=== PATIENT | female | born 1950 | race Caucasian/White ===

== ENCOUNTER 2019-07-06 08:56 | Emergency (ER) | payer MEDICARE ==
[2019-07-06] MEDS ORDERED: METOPROL TAR25 MG PO (09:21)
[2019-07-06] MEDS ORDERED: ASPIRIN81 MG PO (09:21)
[2019-07-06] MEDS ORDERED: SERTRALINE25 MG PO (09:22)
[2019-07-06] MEDS ORDERED: LIDODERM5 % EX (09:34)
[2019-07-06] MEDS ORDERED: NORCO1 TA2 PO (09:34)
[2019-07-06] MEDS ORDERED: ACYCLOVIR800 MG PO (09:35)
[2019-07-06 09:45] VITALS: BP 147/86
== END 2019-07-06 09:45 | disposition home or self-care (01) ==
LOC: ED 08:56
DX: B02.9 Zoster without complications (principal); I10 Essential (primary) hypertension